=== PATIENT | female | born 1995 | race Caucasian/White ===

== ENCOUNTER 2017-06-12 22:12 | Emergency (ER) | payer MEDICAID ==
[2017-06-12 23:27] LABS: URINE BLOOD (Dip) POC Trace-intact (NEGATIVE); URINE GLUCOSE (Dip) POC Negative (NEGATIVE); URINE KETONES (Dip) POC Negative (NEGATIVE); URINE LEUKOCYTE EST (Dip) POC Negative (NEGATIVE); URINE NITRITE (Dip) POC Negative (NEGATIVE); URINE TOTAL PROTEIN POC Negative (NEGATIVE)
[2017-06-12 23:27] LABS: URINE PH (Dip) POC 5.5 (5.0-8.5)
[2017-06-12] MEDS ORDERED: KETOROLAC 60 MG INJ IM (23:40)
[2017-06-12] MEDS: morphine 10 MG INJ IM (23:52)
[2017-06-13] MEDS ORDERED: HYDROCODONE/APAP (10/325) TAB PO
== END 2017-06-13 00:16 | disposition home or self-care (01) ==
LOC: FTE 06-13 00:16
DX: M54.42 Lumbago with sciatica, left side (principal)
CPT/HCPCS: 81003; 81025; 96372; 99284-25

== ENCOUNTER 2018-07-12 13:47 | Emergency (ER) | payer MEDICAID ==
[2018-07-12] MEDS: LIDOCAINE 1% (MPF) 5 ML VIAL INJ (14:38)
== END 2018-07-12 15:35 | disposition home or self-care (01) ==
LOC: FTE 13:47
DX: S61.211A Laceration without foreign body of left index finger without damage to nail, initial encounter (principal); W26.0XXA Contact with knife, initial encounter; Y92.9 Unspecified place or not applicable
CPT/HCPCS: 12001; 99282-25

== ENCOUNTER 2018-07-18 17:58 | Emergency (ER) | payer MEDICAID | END 2018-07-18 20:07 | disposition home or self-care (01) | LOC: FTE 20:07 | DX: Z48.02 Encounter for removal of sutures (principal) | CPT/HCPCS: 99281; Z7502 ==

== ENCOUNTER 2018-11-19 09:08 | Emergency (ER) | payer SELFPAY, MEDICAID | END 2018-11-19 10:50 | disposition home or self-care (01) | LOC: FTE 10:50 | DX: J06.9 Acute upper respiratory infection, unspecified (principal) | CPT/HCPCS: 71045; 81025; 99283-25 ==